=== PATIENT | male | born 1975 | race Caucasian/White ===

== ENCOUNTER → 2018-06-19 10:57 | Outpatient (CLI) | payer BC, SELFPAY ==
--- NOTE | 2018-06-19 11:24 | DI.REPORT_ITS ---
SYMPTOM/DIAGNOSIS: WHEEZING FOR 5-6 MONTHS PA AND LATERAL CHEST 06/19 The heart is normal in size. The lungs are clear. The mediastinal structures and pleura appear intact. CONCLUSION: Normal chest.
[2018-06-19 11:38] LABS: Abs Immature Grans 0.07 k/cumm (0.0-0.09); Absolute Basophil Count 0.06 k/cumm (0.0-0.2); Absolute Eosinophil Count 0.42 k/cumm (0.0-0.7); Absolute Lymphocyte Count 1.63 k/cumm (1.2-3.4); Absolute Monocyte Count 0.73 k/cumm (0.11-0.7); Basophils % 0.9; Eosinophils % 6.2; HCT 48.4 % (40.0-50.0); HGB 16.9 g/dL (13.5-17.5); Lymphocytes % 23.9; Mean Corp. HGB Concentration 34.9 g/dL (32.0-36.0); Mean Corpuscular Hemoglobin 30.6 pg (27.0-33.0); Mean Corpuscular Volume 87.5 fL (80-95); Mean Platelet Volume 10.1 fL (8.0-11.0); Monocytes % 10.7; Neutrophils % 57.3; Platelet Count 229 x1000/uL (130-400); RBC 5.53 m/cumm (4.50-6.00); RBC Distribution Width 12.8 % (11.8-14.1); White Blood Cell Count 6.81 k/cumm (4.4-10.8)
[2018-06-19 12:16] LABS: D-Dimer 164 ng/mlFEU (<500)
[2018-06-19 12:56] LABS: TSH (W/Ref FT4) 2.44 uIU/mL (0.358-3.74)
== END ==
PROVIDERS: PCP Emergency Medicine; Visit Provider Nurse Practitioner Family
DX: R06.2 Wheezing (principal)
CPT/HCPCS: 36415; 71046; 84443; 85025; 85379

== ENCOUNTER 2018-10-14 00:58 | Outpatient (CLI) | payer BC, SELFPAY ==
--- NOTE | 2018-10-14 08:29 | DI.CT_ITS ---
SYMPTOM/DIAGNOSIS: CHRONIC SINUSITIS J32.9 CT SINUSES: No priors. Multiple contiguous axial images of the sinuses were obtained. Sagittal and coronal reformatted images were evaluated on the [employer] work station. There is complete opacification of both frontal sinuses. There is near complete opacification of the ethmoid air cells bilaterally. There is mild mucosal thickening seen in the sphenoid sinuses bilaterally. No fluid levels are seen. There is marked mucosal thickening seen in the maxillary sinuses bilaterally. No fluid levels are appreciated. The mastoid air cells are well pneumatized. The bones show no acute abnormality. The orbits and retro-orbital soft tissues are unremarkable. There is artifact from the patient's dental amalgam. IMPRESSION: Marked bilateral chronic paranasal sinusitis.
== END 2018-10-14 01:18 ==
PROVIDERS: PCP Emergency Medicine; Visit Provider Emergency Medicine
DX: J32.9 Chronic sinusitis, unspecified (principal)
CPT/HCPCS: 70486

== ENCOUNTER 2020-09-14 21:33 | Outpatient (REF) | payer BC, SELFPAY ==
[2020-09-14 21:19] LABS: Calculated LDL 173 mg/dL (<100); Cholesterol 246 mg/dL (<200); HDL Cholesterol 42 mg/dL (40-60); Triglyceride 159 mg/dL (<150)
[2020-09-17 09:31] LABS: PSA, Screening 0.7 ng/mL (0-2.5)
== END 2020-09-14 21:53 ==
LOC: LBN 21:33
PROVIDERS: PCP Emergency Medicine; Visit Provider Emergency Medicine
DX: Z00.00 Encounter for general adult medical examination without abnormal findings (principal); Z12.5 Encounter for screening for malignant neoplasm of prostate
CPT/HCPCS: 80061; 84153

== ENCOUNTER 2022-08-23 16:02 | Outpatient (REF) | payer BC, SELFPAY ==
--- NOTE | 2022-08-23 15:10 | SKI_PTH ---
PATIENT: Raghav Booker LOC: [facility] U#:[id number] AGE/SX: 47/M ROOM: RE08/23/[address]: Destiny Weems : 1975 BED: DIS: 08/23/2022 SPEC #: [id number] RECD: 08/24/22 12:01 STATUS: ALFRED REEdgar #: [id number] RAFFAELE: 08/23/22 15:[address]: Destiny Weems DEPT: Surgical Specimen RECD BY: Meche Abarca Tissues: 1 - SKIN BIOPSY(SHAVE/PUNCH) Procedures: SKIN LEVEL 4 Comments: [id number]
== END 2022-08-23 16:03 | disposition home or self-care (01) ==
LOC: LBN 16:02
PROVIDERS: PCP Family Medicine; Visit Provider Family Medicine
DX: D22.5 Melanocytic nevi of trunk (principal)
CPT/HCPCS: 88305

== ENCOUNTER 2022-09-20 12:07 | Outpatient (REF) | payer BC, SELFPAY ==
--- NOTE | 2022-09-20 12:55 | SKI_PTH ---
PATIENT: Raghav Booker LOC: [facility] U#:[id number] AGE/SX: 47/M ROOM: RE09/20/[address]: Destiny Weems : 1975 BED: DIS: 09/20/2022 SPEC #: [id number] RECD: 09/20/22 17:50 STATUS: ALFRED REEdgar #: [id number] RAFFAELE: 09/20/22 12:[address]: Destiny Weems DEPT: Surgical Specimen RECD BY: Meche Abarca Tissues: 1 - SKIN BIOPSY(SHAVE/PUNCH) Procedures: SKIN LEVEL 4 Comments: [id number]
== END 2022-09-20 12:08 | disposition home or self-care (01) ==
LOC: LBN 12:07
PROVIDERS: PCP Family Medicine; Visit Provider Family Medicine
DX: D22.5 Melanocytic nevi of trunk (principal)
CPT/HCPCS: 88305

== ENCOUNTER 2022-11-07 08:14 | Day surgery (SDC) | payer BC, SELFPAY ==
--- NOTE | 2022-11-06 21:08 | PDOC.DSDIS_ITS ---
Date of service: 11/07/22 Time of Service: 10:19 Discharge Plan Disposition Patient Disposition: Home Condition: Good Discharge Details Reason For Visit: Colonoscopy Attending Provider: Trung Booker Primary Care Provider: Destiny Weems Home Meds and New Rx's Prescriptions: Continued cetirizine [Zyrtec] 10 mg tablet 10 mg PO DAILY PRN fluticasone propionate [Flovent HFA] 110 mcg/actuation HFA aerosol inhaler 1 puff Inhalation BID PRN Rx Instructions: 1 puff inhale by mouth twice a day. Use with spacer albuterol sulfate 90 mcg/actuation HFA aerosol inhaler 2 puff inhalation QID PRN rosuvastatin 10 mg tablet See Rx Instructions .ROUTE .COMPLEX Qty: 90 3RF Hold Instructions: not needed. acc risk 4% Dose Instruction: TAKE 1 TABLET BY MOUTH DAILY Rx Instructions: TAKE 1 TABLET BY MOUTH DAILY Discontinued polyethylene glycol 3350 17 gram/dose powder 238 g PO ONCE Qty: 238 0RF Rx Instructions: take per colonoscopy instructions bisacodyl [Dulcolax (bisacodyl)] 5 mg tablet,delayed release (DR/EC) 5 mg PO ONCE Qty: 4 0RF Rx Instructions: take per colonoscopy instructions Discharge Instructions Instructions: Colorectal Polyps (GEN) Additional Instructions: 1. If tolerated, consume a soft, low fiber diet for 1-2 days. 2[address] Do not drive, drink alcohol, operate machinery, make critical decisions, or do activities that require coordination or balance for 24 hours. 3. Because air was put into your colon during the procedure, expelling air from your rectum (passing gas or farting) is normal. 4. You may not have a bowel movement for 1-3 days because of the colonoscopy prep. This is normal. 5. Go directly to the emergency room if you notice any of the following: Develop chills (warm to touch), or if you have a thermometer and your temperature is above 101 Difficulty breathing or difficultly swallowing Persistent vomiting Severe abdominal pain, other than gas cramps Severe chest pain Black, tarry stools Any bleeding ? exceeding one tablespoon 6. Call your physician if the site where your intravenous was started becomes red, swollen, painful, and warm to touch. 7. Your physician has reviewed your pre-procedure medications. Please continue t o take those medications as previously ordered. You will be given specific information/education regarding any changes to your medications before leaving. Activity:: Activity as Tolerated Diet:: As Tolerated Discharge Orders Discharge Orders: Discharge Order (Routine); Ordered 11/06/22 Ordered By: Trung Booker DS: Diagnosis Discharge Diagnosis (1) Positive colorectal cancer screening using Cologuard test: Status: Acute Asessment and Plan: Mild, your colonoscopy went very smoothly. The quality of the prep was exce llent. I did identify what appeared to be a polyp around 90 cm from the anal verge. I removed this entirely. Once I have the results of the pathology report, I will contact you to share the findings.
--- NOTE | 2022-11-06 21:10 | COLE_ITS ---
Date of service: 11/07/22 Time of Service: 10:21 Colonoscopy Report Date of procedure: 11/07/22 Pre-op diagnosis general: Positive Cologuard test Post-op diagnosis procedure note: other (Polyp at 90 cm) Procedure: Colonoscopy with polypectomy Surgeon: Trung Booker Anesthesia Type: General:No Airway Estimated blood loss (mL): 10 Pathology: other (Colon polyp at 90 cm) Complications: None Disposition: same day Indications: Raghav is a 47-year-old male who took a Cologuard test for colorectal cancer screening as part of routine health maintenance. That test was found to be positive, and he is following up with colonoscopy Prep: Miralax/Dulcolax Procedure Start Time: 09:48 Procedure End Time: 10:05 Retraction Time: 12 Findings: Sessile colon polyp at 90 cm Procedure Description: After the induction of monitored anesthetic care, and with the patient in left lateral decubitus position, I began by performing an external anorectal exam.? Perineum and skin were normal, as was the anal verge.? There was no not evidence of external hemorrhoids.? Next, I performed a digital rectal exam.? I did appreciate any abnormal findings.? Next, I advanced a colonoscope into the rectal vault.? I performed retroflexion.? This was normal.? Using insufflation, I then advanced the colonoscope beyond the rectal folds and into the sigmoid colon before advancing towards the cecum.? The quality of the prep was excellent.? The scope was noted to be in the cecum by identification of the ileocecal valve and appendiceal orifice.? I then began withdrawing the colonoscope using repeated irrigation as necessary for full evaluation of the co lonic mucosa. Around 90 cm from the anal verge I identified a 0.25 cm polyp. ?It appeared sessile in character. ?I was able to remove this with a cold forcep polypectomy. ?I examined the site, and there was minimal bleeding. ?Once this was completed, I continued to withdraw the scope and examine the remainder of the colonic mucosa.?Once the scope was withdrawn to the level of the rectum, great care was taken to examine portions of the rectal folds.? Finally, the scope was withdrawn and the patient was brought to the same-day surgery recovery unit as the anesthetic wore off. ?The findings and instructions were shared with the patient prior to discharge.
[2022-11-07 08:34] VITALS: BP 115/85; PULSE 56; RESP 16; TEMP 36.3; O2SAT 97
[2022-11-07] MEDS: Lactated Ringers 1,000 ML 80 ML IV (09:00)
--- NOTE | 2022-11-07 09:06 | ANES.PREOP_ITS ---
General Info Date of Service Date Performed: 11/07/22 Height: 5 ft 8 in Weight: 75.5 kg Body Mass Index (BMI): 25.2 Surgical Procedure: Operation Date: 11/07/22 09:20 Proposed Procedure Side Surgeon stephani Booker MD Meds Allergies and Home Medications Allergies Allergy/AdvReac Type Severity Reaction Status Date / Time ibuprofen AdvReac Intermediate SOB Verified 11/07/22 08:40 wheezing Home Medication Medication Instructions Recorded rosuvastatin 10 mg tablet See Rx Instructions .Route 07/06/22 .COMPLEX #90 tabs albuterol sulfate 90 mcg/actuation 2 puff inhalation QID PRN 10/05/22 aerosol inhaler cetirizine 10 mg tablet (Zyrtec) 10 mg PO DAILY PRN 10/05/22 fluticasone propionate 110 1 puff inhalation BID PRN 10/05/22 mcg/actuation HFA aerosol inhaler (Flovent HFA) Current Visit Medications: Current Medications Generic Name Dose Route Start Last Admin Trade Name Freq PRN Reason Stop Dose Admin Hyoscyamine Sulfate 0.125 mg 11/06/22 21:11 Hyoscyamine 0.125 Mg Sl/Oral/Chew SL DIRECTED PRN Ringer's Solution 1,000 mls @ 80 mls/hr 11/07/22 06:00 IV 12/06/22 23:59 INFUSION [facility] IV Miscellaneous Supplies 1 each 11/07/22 06:00 Iv Access IV 12/06/22 23:59 DIRECTED MARIO Ondansetron HCl 4 mg 11/06/22 21:11 Ondansetron 4 Mg/2 Ml Vial IVP Q4H PRN PRN Nausea / Vomiting Sodium Chloride 0 ml 11/07/22 06:00 Normal Saline Flush 10 Ml Syr IV 12/06/22 23:59 PRN PRN Sodium Chloride 0 ml 11/07/22 06:00 Normal Saline 10 Ml Vial IJ 12/06/22 23:59 DIRECTED PRN Sterile Water 0 ml 11/07/22 06:00 Water,Injection,Sterile 10 Ml Vial IJ 12/06/22 23:59 DIRECTED PRN PFSH Active Problems Active Problems: Problem Status Onset Code Asthma J45.909 Hyperlipidemia E78.5 Positive colorectal cancer screening using Cologuard test R19.5 Surgical History Surgical History Status post appendectomy Tobacco Smoking/Tobacco Use Status: Former Tobacco Use Passive smoking exposure: Yes (as a child) Second hand exposure: Yes Alcohol Alcohol Intake: former Substance Use Substance use: Never Substance use type: does not use Vital Signs and Lab Results Vital Signs Most Recent Vital Signs in EMR: Most Recent Vital Signs Temp Pulse Resp BP Pulse Ox 36.3 C L 56 L 16 115/85 97 11/07/22 08:34 11/07/22 08:34 11/07/22 08:34 11/07/22 08:34 11/07/22 08:34 Lab Results Blood Type / Crossmatch: No Data to Display Complete Blood Count: No Data to Display Complete Metabolic Panel: No Data to Display Liver Function Panel: No Data to Display Coagulation Panel: No Data to Display Cardiac Panel: No Data to Display Arterial Blood Gas: No Data to Display Venous Blood Gas: No Data to Display Pancreas Panel: No Data to Display Thyroid Panel: No Data to Display Infectious Disease: No Data to Display Blood Cultures: No Data to Display Toxicology Panel: No Data to Display Anesthesia Assessment and Plan Anesthesia History Personal History: No History of Anesthesia Complications Family History: No Family History of Anesthesia Complications Exercise Tolerance Exercise Tolerance: Metabolic Equivalents>4 Pertinent Negatives Pertinent Negatives: No Symptoms of GERD Cardiac & Pulmonary Exam Cardiac Exam: Normal S1/S2 Heart Sounds Pulmonary Exam: Clear Bilateral Breath Sounds Implantable Cardiac Device Does patient have a Pacemaker or an ICD?: No Airway Exam Known Difficult Airway: No Mallampati Class: 2 Mouth Opening: Normal (> 3cm) Thyromental Distance: Greater than 3 cm Neck Range of Motion: Full ROM Neck Circumference: Normal Teeth Condition: Normal Dentition ASA Classification ASA Score: ASA 2 Emergency Case?: No NPO Status NPO Status: NPO Clears >2 hours, Solids >8 hours Anesthesia Plan Resuscitation Status: Full Code Anesthesia Technique: General Anesthesia Airway Planned: Natural Airway Monitors Used: Standard Monitors
[2022-11-07 09:08] VITALS: BMI 25.2
--- NOTE | 2022-11-07 09:19 | W.PM.HP.N ---
Date of service: 11/07/22 Time of Service: 09:19 Assessment and Plan Assessment and plan (1) Positive colorectal cancer screening using Cologuard test: Status: Acute Assessment and plan: Raghav and talked about the risks and benefits of colonoscopy, as well as the nature of the procedure. He provided informed consent today, and we will proceed with screening colonoscopy. History of Present Illness History of Present Illness Chief Complaint: Positive Cologuard test Narrative: Raghav is a 47-year-old male who used Cologuard screening test as part of routine health maintenance for screening colon cancer. That test was positive. He is following up for the colonoscopy. He denies any concerning gastrointestinal signs or symptoms like melena or hematochezia. He denies any family history of colon or rectal cancers. PFSH All Active Problems Asthma (Chronic) Hyperlipidemia (Acute) Positive colorectal cancer screening using Cologuard test (Acute) Surgical History Status post appendectomy Family History Mother , heavy smoker; age 63; of lung ca. Heart disease Stroke Lung cancer Maternal Grandfather Heart disease Hyperlipidemia Stroke Paternal Grandfather Essential hypertension Heart disease Maternal Grandmother Essential hypertension Heart disease Hyperlipidemia Stroke Father No problems noted. Social History Smoking/Tobacco Use Status: Former Tobacco Use Quit Date: 10/29/07 Second Hand Exposure: Yes Smoking risk assessment performed?: Yes Alcohol Intake: former Drug use: Never Substance use type: does not use Caregiver/Support person: No Household members: spouse and children Housing: house Number of Children: 3 Communication Needs: None Do you need help understanding health information?: Never current occupation: Owns [employer] Pets and animals: No Sexually active: Yes Do you think of yourself as: straight/heterosexual Current gender identity: male What is your relationship status?: How often do you talk on the phone with friends or family?: three or more times per week How often do you get together with friends or relatives?: three or more times per week How often do you attend pentecostalism or sikhism services?: 1-3 times per year Do you belong to any clubs or organized social groups?: yes Panel score (0-1 are the most socially isolated patients): 3 What type of physical activity do you participate in: other Details: all Duration: 60-90 minutes/day Frequency: 5-6 times per week Ashleigh/Jewish: None Special ashleigh needs: No Seatbelt use: always Drive intox or ride w/intox bookmobile driver: No Do you feel safe at home: Yes Do you feel safe in your relationship?: Yes Victim of physical abuse: No Victim of emotional abuse: No Victim of sexual abuse: No Would you like helpful sources: No Meds Allergies and Home Medications Allergies Allergy/AdvReac Type Severity Reaction Status Date / Time ibuprofen AdvReac Intermediate SOB Verified 11/07/22 08:40 wheezing Home Medications Medication Instructions Recorded Confirmed Type rosuvastatin 10 mg tablet See Rx Instructions .Route 07/06/22 11/07/22 Rx .COMPLEX #90 tabs albuterol sulfate 90 mcg/actuation 2 puff inhalation QID PRN 10/05/22 11/07/22 History aerosol inhaler cetirizine 10 mg tablet (Zyrtec) 10 mg PO DAILY PRN 10/05/22 11/07/22 History fluticasone propionate 110 1 puff inhalation BID PRN 10/05/22 11/07/22 History mcg/actuation HFA aerosol inhaler (Flovent HFA) Exam Const General: cooperative, healthy appearing and comfortable Orientation: awake and oriented x3 Eyes General: appearance normal, both eyes and all related structures Conjunctivae: conjunctivae normal Sclera: sclerae normal Resp Effort & Inspection: normal respiratory effort and able to speak in complete sentences Auscultation: clear to auscultation bilaterally Cardio Jugular venous pressure: no JVD Rate: regular rate Rhythm: regular rhythm Heart Sounds: S1 normal and S2 normal GI Inspection: non-distended Palpation: soft, no guarding, no hernias and nontender Auscultation: normal bowel sounds Skin General skin exam: normal turgor Neuro General: patient alert, patient awake and patient oriented x3 Cognition: normal cognition Extrem Right lower extremity: no edema Left lower extremity: no edema Results Last Vital Signs Temp 97.3 F L 11/07/22 08:34 Pulse 56 L 11/07/22 08:34 Resp 16 11/07/22 08:34 BP 115/85 11/07/22 08:34 Pulse Ox 97 11/07/22 08:34 Time Spent Time spent with Patient: <40 minutes Time was spent: preparing to see the patient(eg.review tests) and counseling the patient
--- NOTE | 2022-11-07 09:56 | BOWEL_PTH ---
PATIENT: Raghav Booker LOC: [facility] U#:[id number] AGE/SX: 47/M ROOM: RE11/07/[address]: Trung Booker MD : 1975 BED: DIS: 11/07/2022 SPEC #: [id number] RECD: 11/07/22 12:17 STATUS: ALFRED REQ #: [id number] RAFAFELE: 11/07/22 09:[address]: Trung Booker DEPT: Surgical Specimen RECD BY: Meche Abarca ENTERED: 11/07/22 12:18 SP TYPE: Bowel OTHR DR: Destiny Weems Tissues: 1 - BIOPSY BOWEL Procedures: GROSS AND MICRO LEVEL 4 Comments: [id number]
[2022-11-07 10:13] VITALS: BP 108/69; PULSE 57; RESP 16; TEMP 36.1; O2SAT 96
--- NOTE | 2022-11-07 10:21 | W.ANESPOSTOP ---
Postoperative Evaluation Date, Time and Location Date Performed: 11/07/22 Time Performed: 10:21 Patient Location: Day Surgery Unit Vital Signs Most Recent Imported Vital Signs: Most Recent Vital Signs Temp Pulse Resp BP Pulse Ox 36.1 C L 57 L 16 108/69 96 11/07/22 10:13 11/07/22 10:13 11/07/22 10:13 11/07/22 10:13 11/07/22 10:13 Pain Score Most Recent Pain Score: Most Recent Pain Score Pain Level 0 11/07/22 10:13 Assessment Mental Status: Awake (Alert & Oriented to Patient Baseline) Airway and Respiratory Function: Patent airway with normal (patient baseline) respiratory exam Cardiovascular Function: Hemodynamically Stable Hydration Status: Adequately Hydrated Nausea & Vomiting: No Nausea or Vomiting Pain: Pt. Denies Any Pain Peripheral Nerve Block: Patient did not receive a nerve block
[2022-11-07 10:45] VITALS: BP 116/85; PULSE 55; RESP 16; TEMP 36.5; O2SAT 98
== END 2022-11-07 10:55 | disposition home or self-care (01) ==
PROVIDERS: PCP Family Medicine; Visit Provider Surgery
PROC: 0DJD8ZZ Inspection of Lower Intestinal Tract, Via Natural or Artificial Opening Endoscopic (ICD-10-PCS; CPT 45378; principal; 2022-11-07 09:15)
DX: R19.5 Other fecal abnormalities (principal); K63.5 Polyp of colon; J45.909 Unspecified asthma, uncomplicated; E78.5 Hyperlipidemia, unspecified
CPT/HCPCS: 45380; 88305

== ENCOUNTER 2023-07-19 03:44 | Outpatient (CLI) | payer BC, SELFPAY ==
[2023-07-19 15:13] LABS: Calculated LDL 177 mg/dL (<100); Cholesterol 256 mg/dL (<200); HDL Cholesterol 52 mg/dL (40-60); Triglyceride 136 mg/dL (<150)
== END 2023-07-19 03:45 | disposition home or self-care (01) ==
LOC: LBO 03:44
PROVIDERS: PCP Family Medicine; Visit Provider Family Medicine
DX: E78.5 Hyperlipidemia, unspecified (principal)
CPT/HCPCS: 36415; 80061

== ENCOUNTER 2023-08-15 14:24 | Outpatient (REF) | payer BC, SELFPAY ==
[2023-08-15 14:43] LABS: Abs Immature Grans 0.02 10^3/uL (0.0-0.06); Absolute Basophil Count 0.06 10^3/uL (0.0-0.2); Absolute Eosinophil Count 0.19 10^3/uL (0.0-0.7); Absolute Lymphocyte Count 1.52 10^3/uL (1.2-3.4); Absolute Monocyte Count 0.61 10^3/uL (0.1-0.8); Absolute Neutrophil Count 3.47 10^3/uL (1.2-6.7); Eosinophils % 3.2; HCT 49.2 % (40.0-50.0); HGB 17.1 g/dL (13.5-17.5); Immature Grans % 0.3; Lymphocytes % 25.9; MCH 30.2 pg (27.0-33.0); MCHC 34.8 % (32.0-36.0); MCV 87 fL (80-95); MPV 10.1 fL (8.0-11.0); Monocytes % 10.4; Neutrophils % 59.2; Platelet Count 289 10^3/uL (130-400); RBC 5.67 10^6/uL (4.36-5.78); RDW 12.4 % (11.8-14.1); RDW-SD 39.2 fL; WBC 5.87 10^3/uL (4.4-10.8)
[2023-08-15 14:44] LABS: ALT 34 U/L (16-63); AST 22 U/L (15-37); Alkaline Phosphatase 83 U/L (46-116); Anion Gap 3.6 mmol/L (3-11); BUN 10 mg/dL (7-18); Bilirubin, Total 0.6 mg/dL (0.2-1.0); CO2 30.4 mmol/L (21.0-32.0); Calcium 9.4 mg/dL (8.5-10.1); Chloride 102 mmol/L (98-107); Estimated GFR 92.26 (mL/min/1.73m2); Glucose 88 mg/dL (74-106); Lipase 36 U/L (16-77); Potassium 4.5 mmol/L (3.5-5.1); Sodium 136 mmol/L (136-145); Total Protein 7.1 g/dL (6.4-8.2)
== END 2023-08-15 14:25 | disposition home or self-care (01) ==
LOC: NCHCN 14:24
PROVIDERS: PCP Family Medicine; Visit Provider Physician Assistant Medical
DX: R10.11 Right upper quadrant pain (principal)
CPT/HCPCS: 80053; 83690; 85025

== ENCOUNTER 2025-05-29 13:02 | Outpatient (CLI) | payer OTHER, SELFPAY ==
[2025-05-29 22:50] LABS: PSA, Screening 0.8 ng/mL (<=3.5)
== END 2025-05-29 13:03 | disposition home or self-care (01) ==
LOC: LBO 13:02
PROVIDERS: PCP Family Medicine; Visit Provider Family Medicine
DX: Z12.5 Encounter for screening for malignant neoplasm of prostate (principal)
CPT/HCPCS: 36415; 84153